=== PATIENT | female | born 1950 | race Caucasian/White ===

== ENCOUNTER → 2020-12-17 | Outpatient (CLI) | payer MEDICARE ==
--- NOTE | 2020-12-17 09:10 | Diagnostic Imaging Report ---
INDICATION: Postmenopausal screening for osteoporosis COMPARISON: None FINDINGS: AP Spine L1-L4: [BMD (g/cm2): 1.069] [T-Score: -1.1] [Z-Score: 0.3] [BMD Previous: na] [BMD % Change: na] LT Hip Neck: [BMD (g/cm2): 0.823] [T-Score: -1.5] [Z-Score: -0.1] LT Hip Total: [BMD (g/cm2):0.902] [T-Score:-0.8] [Z-Score: 0.4] [BMD Previous: na] [BMD % Change: na] RT Hip Neck: [BMD (g/cm2):0.743] [T-Score:-2.1] [Z-Score:-0.7] RT Hip Total: [BMD (g/cm2):0.876] [T-score:-1.0] [Z-Score:0.1] [BMD Previous:na] [BMD % Change:na] *Indicates significant change from prior examination based on 95% confidence level. World Health Organization criteria for BMD interpretation classify patients as Normal (T-score at or above -1.0), Osteopenic (T-score between -1.0 and -2.5) or Osteoporotic (T-score at or below -2.5). LIMITATIONS AND MODIFICATION: None. FRACTURE RISK (FRAX SCORE): The ten year probability of (%): Major Osteoporotic Fracture: [11.7] Hip Fracture: [2.2] IMPRESSION: 1. Osteopenia (Low bone mass), borderline. 2. Baseline examination. 3. See below National Osteoporosis Foundation guidelines on when to potentially initiate pharmacologic therapy. Based on the National Osteoporosis Foundation Guidelines, pharmacologic treatment should be initiated in any of the following, unless clinical conditions suggest otherwise: * Any patient with prior fragility fracture of the hip or vertebrae. A spine fracture indicates 5X risk for subsequent spine fracture and 2X risk for subsequent hip fracture. * Osteoporosis (T-score <-2.5). * Postmenopausal women and men age 50 and older with low bone mass/osteopenia (T-score between -1.0 and -2.5) by DXA and 10-year major osteoporotic fracture greater than 20% or a 10-year probability of hip fracture greater than 3%. These fracture risks are supplied above in the FRAX score, if applicable. * Clinician judgement and/or patient preferences may indicate treatment for people with 10-year fracture probabilities above or below these levels. Dictated by: Dictated on workstation # [id number]
== END ==
LOC: RAD 08:29
PROVIDERS: ATTEND Family Medicine
DX: M85.89 Other specified disorders of bone density and structure, multiple sites (principal); Z78.0 Asymptomatic menopausal state
CPT/HCPCS: 77080

== ENCOUNTER → 2021-01-22 | Outpatient (CLI) | payer MEDICARE, OTHER ==
[~2021-01-22] MED LIST: AMIT25TA9 PO; ASPI-999 PO; BARIUM for suspension 96% w/w (Vanilla Silq Medium Density) PO ONE; BARIUM for suspension 98% w/w (Vanilla Silq High Density) PO ONE; LIOT25TA11 PO; LISI20TA26 PO; PANT40TA52 PO; ROSU40TA23 PO; VENL150C PO
--- NOTE | 2021-01-22 09:29 | Diagnostic Imaging Report ---
INDICATION: Dysphagia. TECHNIQUE: The patient ingested effervescent crystals as well as thin and thick barium and imaging over the esophagus was performed. FLUOROSCOPY TIME: 1 minute 17 seconds was utilized. FINDINGS: The patient appears to have a large paraesophageal hiatal hernia with the paraesophageal component noted along the right aspect of the distal esophagus at the level of the right lung base. No esophageal mass or stricture is seen. Occasional tertiary contractions are noted. There is prompt emptying into the stomach and proximal small bowel. IMPRESSION: Large paraesophageal hiatal hernia. No other significant abnormality is detected. Dictated by: Dictated on workstation # [id number]
--- NOTE | 2021-01-22 09:35 | Diagnostic Imaging Report ---
PROCEDURE: US Gallbladder. TECHNIQUE: Multiple real-time grayscale images were obtained over the right upper quadrant in various projections. INDICATION: Left lower quadrant pain. Liver is normal in size at 13 cm. No discrete liver mass is detected. Portal vein is patent and shows normal direction of flow. Gallbladder contains multiple folds but no stones are seen. No wall thickening or biliary duct dilatation is identified. The pancreas was obscured. Aorta is mostly obscured although the distal aorta is nonaneurysmal. IVC is patent. Right kidney does contain a cyst in the lower pole measuring 2.7 cm. No calculi or hydronephrosis is seen. There is no ascites. IMPRESSION: No evidence of cholelithiasis or acute cholecystitis. Right renal cyst. Dictated by: Dictated on workstation # [id number]
== END ==
LOC: RAD 08:00
PROVIDERS: ATTEND Surgery
DX: K44.9 Diaphragmatic hernia without obstruction or gangrene (principal)
CPT/HCPCS: 74220; 76705

== ENCOUNTER 2021-01-24 05:39 | Outpatient (RCR) | payer MEDICARE ==
[~2021-01-24] VITALS: Ht 149.9 cm; Wt 73.9 kg
[~2021-01-24 05:39] MED LIST changes: -BARIUM for suspension 96% w/w (Vanilla Silq Medium Density) PO ONE; -BARIUM for suspension 98% w/w (Vanilla Silq High Density) PO ONE
== END 2021-01-24 09:36 | disposition home or self-care (01) ==
LOC: PREOP 05:39
PROVIDERS: ATTEND Surgery
DX: Z01.812 Encounter for preprocedural laboratory examination (principal); R13.10 Dysphagia, unspecified; Z20.822 Contact with and (suspected) exposure to COVID-19
CPT/HCPCS: 87635

== ENCOUNTER → 2021-01-27 | Outpatient (CLI) | payer MEDICARE ==
[~2021-01-27] MED LIST changes: +CATHETER FLUSH 10 ML SYR IV PRN
--- NOTE | 2021-01-27 13:33 | Diagnostic Imaging Report ---
INDICATION: Left lower quadrant pain. Patient was administered 5.5 mCi technetium 99m Choletec intravenously and imaging over the abdomen was performed. After 60 minutes patient ingested one can of Ensure and gallbladder ejection fraction was calculated. There is homogeneous uptake of activity by the liver with prompt excretion of activity into the gallbladder and common duct. Normal passage of activity into the small bowel is noted. Gallbladder ejection fraction is normal at 55%. IMPRESSION: Normal HIDA scan and gallbladder ejection fraction. Dictated by: Dictated on workstation # [id number]
== END ==
LOC: CARD 09:10
PROVIDERS: ATTEND Surgery
DX: R10.32 Left lower quadrant pain (principal); R13.10 Dysphagia, unspecified
CPT/HCPCS: 78227; A9537

== ENCOUNTER 2021-01-28 12:05 | Day surgery (SDC) | payer MEDICARE, OTHER ==
[~2021-01-28] VITALS: Ht 149.9 cm; Wt 73.9 kg
[~2021-01-28 12:05] MED LIST changes: -CATHETER FLUSH 10 ML SYR IV PRN; +LACTATED RINGERS 1,000 ML IV ONE
[2021-01-28] MEDS ORDERED: LACTATED RINGERS 1,000 ML IV STA (12:13)
[2021-01-28] MEDS ORDERED: HURRICAINE EXT TUBE (BENZOCAINE) XX PRN (12:15)
[2021-01-28 12:27] VITALS: BP 144/99
[2021-01-28] MEDS ORDERED: proPOfol 200 MG/20 ML (DIPRIVAN) VIAL IV ONE (12:59)
[2021-01-28] MEDS ORDERED: MIDAZOLAM 2 MG/2 ML (VERSED) VIAL ONE (12:59)
--- NOTE | 2021-01-28 13:19 | Progress Note-Pre Operative ---
Pre-Operative Progress Note H&P Reviewed The H&P was reviewed, patient examined and no changes noted. Date Seen by Provider: Jan 28, 2021 Time Seen by Provider: 13:16 Date H&P Reviewed: Jan 28, 2021 Time H&P Reviewed: 13:16 Pre-Operative Diagnosis: dysphagia ALBERTO MORRISON DO Jan 28, 2021 13:19
[2021-01-28 13:44] VITALS: BP 126/60
--- NOTE | 2021-01-28 13:46 | Progress Note-Post Operative ---
Post-Operative Progess Note Surgeon (s)/Acquisition Marketing Coordinator (s) Surgeon ALBERTO MORRISON DO Acquisition Marketing Coordinator: na Pre-Operative Diagnosis dysphagia Post-Operative Diagnosis duodenitis, gastritis, hiatal hernia Procedure & Operative Findings Date of Procedure 01/28/21 Procedure Performed/Findings egd c biopsies Anesthesia Type per senior account director Estimated Blood Loss Estimated blood loss (mL): none Specimens/Packing Specimens Removed antum, body, ge ALBERTO MORRISON DO Jan 28, 2021 13:46
--- NOTE | 2021-01-28 13:47 | Discharge Inst-Simple/Standard ---
Discharge Inst-Standard Patient Instructions/Follow Up Plan of Care/Instructions/FU: 2 weeks Shania Activity as Tolerated: Yes Discharge Diet: Regular Diet ALBERTO MORRISON DO Jan 28, 2021 13:47
[2021-01-28 13:49] VITALS: BP 137/76
[2021-01-28 13:55] VITALS: BP 141/84
--- NOTE | 2021-01-28 14:13 | Anesthesia-General Post-Op ---
MAC Patient Condition Mental Status/LOC: Same as Preop Cardiovascular: Satisfactory Nausea/Vomiting: Absent Respiratory: Satisfactory Pain: Controlled Complications: Absent Post Op Complications Complications None Follow Up Care/Instructions Patient Instructions None needed. Anesthesiology Discharge Order Discharge Order Patient is doing well, no complaints, stable vital signs, no apparent adverse anesthesia problems. No complications reported per nursing. DENY OJEDA CRNA Jan 28, 2021 14:13
[2021-01-28 14:25] VITALS: BP 125/88
[2021-01-28 16:05] VITALS: BP 125/88
--- NOTE | 2021-01-29 00:21 | OPERATIVE REPORT ---
DATE OF SERVICE: 01/28/2021 PREOPERATIVE DIAGNOSIS: Dysphagia. POSTOPERATIVE DIAGNOSES: Duodenitis, gastritis, hiatal hernia. PROCEDURE: EGD with biopsy. SURGEON: Alberto Jauregui DO ANESTHESIA: Per WOOD CARVER. ESTIMATED BLOOD LOSS: None. COMPLICATIONS: None. SPECIMENS: Antrum, body, GE junction. INDICATIONS: The patient is a 70-year-old female with dysphagia. She understands risks and benefits of procedure and wished to proceed with procedure. Consent was signed in the chart. DESCRIPTION OF PROCEDURE: The patient was taken to the endoscopy suite, placed in left lateral recumbent position. Timeout was performed. Scope was inserted in mouth, down the esophagus, stomach and into the duodenum without difficulty. No polyps, masses or ulcerations in the duodenum. Some areas of erythema consistent with some duodenitis. Scope was slowly retracted back into the stomach where it was further insufflated. No polyps, masses or ulcerations or erythematous changes throughout the antrum and body. Biopsies of the antrum and body were obtained. Scope was retroflexed noting a hiatal hernia, no other pathology. Scope was returned to its normal position, slowly withdrawn to distal esophagus. Biopsy of GE junction was obtained. Scope was then slowly retracted back to completely remove noting no other pathology. RECOMMENDATIONS: The patient will follow up in office in two weeks to discuss pathology results. We will continue on current medications. We will likely order an upper GI for further evaluation. Further recommendations pending results. Job ID: [id number] DocumentID: [id number] Dictated Date: 01/28/2021 13:49:49 Net Trainer Date: 01/29/2021 00:20:42 Dictated By: ALBERTO JAUREGUI DO
== END 2021-01-28 16:05 | disposition home or self-care (01) ==
LOC: ENDO 12:05
PROVIDERS: ATTEND Surgery
DX: K29.80 Duodenitis without bleeding (principal); K29.70 Gastritis, unspecified, without bleeding; K31.89 Other diseases of stomach and duodenum; K21.9 Gastro-esophageal reflux disease without esophagitis; K44.9 Diaphragmatic hernia without obstruction or gangrene; I10 Essential (primary) hypertension; R13.10 Dysphagia, unspecified; E78.5 Hyperlipidemia, unspecified; F32.9 Major depressive disorder, single episode, unspecified; Z79.82 Long term (current) use of aspirin; Z79.899 Other long term (current) drug therapy; Z90.710 Acquired absence of both cervix and uterus; Z20.822 Contact with and (suspected) exposure to COVID-19; Z88.8 Allergy status to other drugs, medicaments and biological substances; Z96.653 Presence of artificial knee joint, bilateral; Z85.3 Personal history of malignant neoplasm of breast; Z80.1 Family history of malignant neoplasm of trachea, bronchus and lung

== ENCOUNTER → 2021-02-19 | Outpatient (CLI) | payer MEDICARE, OTHER ==
[~2021-02-19] MED LIST changes: -LACTATED RINGERS 1,000 ML IV ONE
--- NOTE | 2021-02-19 13:51 | Diagnostic Imaging Report ---
PROCEDURE: US Thyroid. TECHNIQUE: Multiple real-time grayscale images were obtained of the thyroid in various projections. INDICATION: Dysphasia Right thyroid lobe 3.8 x 0.9 x 1.5 cm. It contains a upper pole well-circumscribed hypoechoic nodule measuring 6 mm long axis as well as a hypoechoic well-defined lower pole nodule measuring 9 mm long axis. The left thyroid lobe 3.2 x 1.3 x 1.2 cm contains a hypoechoic well-defined upper pole nodule of 7 mm long axis. IMPRESSION: Subcentimeter bilateral thyroid nodules, solid and hypoechoic. While these are TI-RADS 4 level lesions given their subcentimeter size may require no further recommended workup. Dictated by: Dictated on workstation # [id number]
== END ==
LOC: RAD 11:20
PROVIDERS: ATTEND Surgery
DX: E04.2 Nontoxic multinodular goiter (principal)
CPT/HCPCS: 76536

== ENCOUNTER → 2022-09-25 | Outpatient (CLI) | payer MEDICARE, OTHER ==
[~2022-09-25] MED LIST changes: -VENL150C PO; +VENL150C3 PO
== END ==
LOC: CARD 12:00
PROVIDERS: ATTEND Internal Medicine Cardiovascular Disease
DX: I35.1 Nonrheumatic aortic (valve) insufficiency (principal); I10 Essential (primary) hypertension; I25.10 Atherosclerotic heart disease of native coronary artery without angina pectoris
CPT/HCPCS: 93306

== ENCOUNTER → 2022-10-06 | Outpatient (CLI) | payer MEDICARE, OTHER ==
[2022-10-06 09:35] LABS: HEMATOCRIT 43 % (35-52); HEMOGLOBIN 14.2 g/dL (11.5-16.0); MEAN CORPUSCULAR HEMOGLOBIN 30 pg (25-34); MEAN CORPUSCULAR HGB CONC 33 g/dL (32-36); MEAN CORPUSCULAR VOLUME 91 fL (80-99); MEAN PLATELET VOLUME 10.1 fL (9.0-12.2); PLATELET COUNT 237 10^3/uL (130-400); WHITE BLOOD COUNT 4.6 10^3/uL (4.3-11.0)
[2022-10-06 09:52] LABS: ALBUMIN 4.4 GM/DL (3.2-4.5); BILIRUBIN,TOTAL 1.5 MG/DL (0.1-1.0); CALCIUM 9.6 MG/DL (8.5-10.1); CREATININE SERUM 0.8 MG/DL (0.60-1.30); POTASSIUM 4.3 MMOL/L (3.6-5.0); TOTAL PROTEIN 7.3 GM/DL (6.4-8.2)
== END ==
LOC: LAB 09:16
PROVIDERS: ATTEND Internal Medicine Cardiovascular Disease
DX: I10 Essential (primary) hypertension (principal); I25.10 Atherosclerotic heart disease of native coronary artery without angina pectoris; I65.23 Occlusion and stenosis of bilateral carotid arteries; E03.9 Hypothyroidism, unspecified; E78.2 Mixed hyperlipidemia
CPT/HCPCS: 36415; 80053; 80061; 83036; 84443; 85027

== ENCOUNTER → 2022-10-07 | Outpatient (CLI) | payer MEDICARE, OTHER ==
[~2022-10-07] MED LIST changes: +CATHETER FLUSH 10 ML SYR IVP PRN
[2022-10-07 13:17] VITALS: BP 143/82
--- NOTE | 2022-10-07 14:51 | Cardiology Stress Test Report ---
Stress Test Report Date of Procedure/Referring: Date of Procedure: Oct 07, 2022 PCP Cutr Greene MD Admitting Physician Admitting Physician: Attending Physician: Ryan David MD Baseline Heart Rate: 111 Baseline Blood Pressure: Blood Pressure Systolic: 143 Blood Pressure Diastolic: 82 Vital Signs Date Time Temp Pulse Resp B/P (MAP) Pulse Ox O2 Delivery O2 Flow Rate FiO2 10/07/22 13:17 111 143/82 (102) Baseline Vital Signs Vital Signs Date Time Temp Pulse Resp B/P (MAP) Pulse Ox O2 Delivery O2 Flow Rate FiO2 10/07/22 13:17 111 143/82 (102) Baseline EKG: Baseline EKG: NSR Summary: After explaining the procedure and details to the patient, she signed the consent and was brought to the stress nuclear laboratory. Patient exercised on standard Dony protocol, EKG, heart rate and blood pressure were monitored continuously, resting and stress doses of radio tracer were injected, imaging was acquired and reviewed in the short axis, horizontal long axis and vertical long axis views Patient was able to exercise for a total of 2 minutes on Dony protocol, METs 3.4 Maximum heart rate 156 Maximum blood pressure 202/96 Stress EKG, Minimal nondiagnostic changes Recovery EKG, Return to baseline SSS: 1 SDS: 1 EF: 79 Conclusion: 1. Poor exercise tolerance for a total of 2 minutes on standard Dony protocol, 3.4 METS achieving 100% of maximum expected heart rate 2. Baseline sinus tachycardia with appropriate heart rate response to exercise with hypertensive response to exercise return to baseline during recovery 3. Minimal nondiagnostic EKG changes with exercise return to baseline during recovery 4. No significant ischemia or infarction noted on SPECT images 5. Normal left ventricular size, ejection fraction 79% RYAN DAVID MD Oct 07, 2022 14:51
== END ==
LOC: CARD 11:30
PROVIDERS: ATTEND Internal Medicine Cardiovascular Disease
DX: I10 Essential (primary) hypertension (principal); I25.10 Atherosclerotic heart disease of native coronary artery without angina pectoris
CPT/HCPCS: 78452; 93017; A9502

== ENCOUNTER → 2022-11-06 | Outpatient (CLI) | payer MEDICARE, OTHER ==
[~2022-11-06] MED LIST changes: -CATHETER FLUSH 10 ML SYR IVP PRN
--- NOTE | 2022-11-06 15:00 | Diagnostic Imaging Report ---
PROCEDURE: US Abdomen, limited. TECHNIQUE: Multiple real-time grayscale images were obtained over the abdomen in various projections. INDICATION: Epigastric pain. FINDINGS: Liver parenchyma is homogeneous with normal echotexture. Portal vein is patent with hepatopetal flow. The gallbladder is clear with no stones or wall thickening. The common duct is not dilated. Pancreas is obscured by bowel gas. IVC is patent. Aorta is obscured. The right kidney measures 9.5 cm in length. There is a 3 cm cyst on the inferior pole of the right kidney. There is no ascites. IMPRESSION: Unremarkable right upper quadrant ultrasound. Dictated by: Dictated on workstation # [id number]
== END ==
LOC: RAD 09:46
PROVIDERS: ATTEND Nurse Practitioner
DX: R10.13 Epigastric pain (principal)
CPT/HCPCS: 76705

== ENCOUNTER → 2022-11-13 | Outpatient (CLI) | payer MEDICARE, OTHER ==
[~2022-11-13] MED LIST changes: +CATHETER FLUSH 10 ML SYR IVP PRN
--- NOTE | 2022-11-13 11:20 | Diagnostic Imaging Report ---
INDICATION: Epigastric pain. TECHNIQUE: The patient was administered 5.5 mCi of technetium 99m Choletec intravenously and imaging over the abdomen was performed. At 45 minutes, the patient ingested 8 ounces of Ensure and a gallbladder ejection fraction was calculated. FINDINGS: There is homogeneous uptake of activity by the liver with prompt excretion of activity into the common duct and gallbladder. There is normal passage of activity into the small bowel. The gallbladder ejection fraction measures 92%. IMPRESSION: Normal HIDA scan and gallbladder ejection fraction. Dictated by: Dictated on workstation # [id number]
== END ==
LOC: CARD 09:13
PROVIDERS: ATTEND Nurse Practitioner
DX: R10.13 Epigastric pain (principal)
CPT/HCPCS: 78227; A9537

== ENCOUNTER 2022-11-26 05:39 | Outpatient (CLI) | payer MEDICARE, OTHER ==
[~2022-11-26] VITALS: Ht 151.3 cm; Wt 68.0 kg
[~2022-11-26 05:39] MED LIST changes: -CATHETER FLUSH 10 ML SYR IVP PRN
[2022-11-26] MEDS ORDERED: FLUO40CA12 PO (11:07)
[2022-11-26] MEDS ORDERED: MULT-1136 PO (11:09)
[2022-11-26] MEDS ORDERED: MELA1TAB20 PO (11:09)
== END 2022-11-26 11:59 | disposition home or self-care (01) ==
LOC: PREOP 05:39
PROVIDERS: ATTEND Surgery
DX: Z01.818 Encounter for other preprocedural examination (principal)

== ENCOUNTER 2022-12-02 09:40 | Day surgery (SDC) | payer MEDICARE, OTHER ==
[2022-12-02] VITALS (11 sets, daily range): BP systolic 129–155; BP diastolic 70–87
[~2022-12-02] VITALS: Ht 151.3 cm; Wt 68.0 kg
[~2022-12-02 09:40] MED LIST changes: +FLUO40CA12 PO; +MELA1TAB20 PO; +MULT-1136 PO
[2022-12-02] MEDS ORDERED: BUP/EPI 0.5% 1:200,000 (SENSORCAINE) 30 ML VIAL ONE (09:43)
[2022-12-02] MEDS ORDERED: ceFAZolin INJECTION 2,000 MG in NS (IVPB) 50 ML IV ONE (10:00)
[2022-12-02] MEDS ORDERED: LACTATED RINGERS 1,000 ML IV PRN (10:00)
--- NOTE | 2022-12-02 10:40 | Progress Note-Pre Operative ---
Pre-Operative Progress Note Date of Available H&P: Nov 23, 2022 Date H&P Reviewed: Dec 02, 2022 Time H&P Reviewed: 10:24 History & Physical: H&P Reviewed, Patient Examed, No changes noted Pre-Operative Diagnosis: biliary dyskinesia ALBERTO MORRISON DO Dec 02, 2022 10:40
--- NOTE | 2022-12-02 11:22 | Progress Note-Post Operative ---
Post-Operative Progess Note Surgeon (s)/Flexographic Press Operator (s) Surgeon ALBERTO MORRISON DO Flexographic Press Operator: Dr. Rayo to assist in retraction dissection and closure. Pre-Operative Diagnosis biliary dyskinesia Post-Operative Diagnosis same Procedure & Operative Findings Date of Procedure 12/02/22 Procedure Performed/Findings PROCEDURE: Laparoscopic cholecystectomy with intraoperative cholangiogram. COMPLICATIONS: None. PROCEDURE: The patient was taken to the operating suite and was prepped and draped in sterile fashion. A surgical pause was performed. Just superior to the umbilicus, a 12 mm incision was made. Dissection was taken down to the fascia, which was then scored and grasped with a Cheri and the abdomen was then entered. A 0 Vicryl suture was placed in a [id number] fashion and a Ngo trocar was placed and secured. Pneumoperitoneum was achieved. A 5mm trochar place in the subxyphoid and 2 in the right upper quadrant. The gallbladder was then grasped and elevated. The cystic duct, and cystic artery were then dissected out. Clip was placed on the distal portion of the cystic duct which was then partially transected. An arrow catheter was inserted into the duct. The cholangiogram was then performed. No filing defects and contrast made its way into the duodenum. Catheter removed. Clips were placed on proximal portion of the cystic duct and then the duct was then transected. Clips were placed along the proximal and distal portion of the cystic artery which was then transected. Hook cautery was used to dissect the gallbladder from the gallbladder fossa achieving hemostasis. The gallbladder was placed in an Endobag and removed through the 12 mm trocar site. The abdomen was then reinspected. Copious amounts of irrigation were used to irrigate the abdomen and there were no signs of active bleeding. Hemostasis had been achieved. The 12 mm fascial defect was then closed with 0 Vicryl suture that had been placed in a kkozmz-[id number]-bympo fashion. The abdomen was then desufflated, the trocars were removed. The abdomen was then washed and dried. The skin was then closed using 4-0 Monocryl in a subcuticular fashion. The abdomen was washed and dried and Skin Affix was place over incisions. Patient tolerated the procedure well without any complications and was taken to the recovery room in stable condition. Anesthesia Type general Estimated Blood Loss Estimated blood loss (mL): minimal Specimens/Packing Specimens Removed gallbladder ALBERTO MORRISON DO Dec 02, 2022 11:22
[2022-12-02] MEDS ORDERED: DOCU-143 PO (11:23)
[2022-12-02] MEDS ORDERED: ACHD5005 PO (11:23)
--- NOTE | 2022-12-02 11:24 | Discharge Inst-Simple/Standard ---
Discharge Inst-Standard Discharge Medications New, Converted or Re-Newed RX: Transmitted to Pharmacy Patient Instructions/Follow Up Plan of Care/Instructions/FU: 2 weeks Shania Activity as Tolerated: No Discharge Diet: Regular Diet Other Inst to Patient Follow up Appt: Make appointment for 2 weeks. Instructions: No lifting greater than 10 pounds. No strenuous activity. May shower in 24 hours, no tub bath or soaking. Use incentive spirometer at home as directed. No Smoking Skin/Wound Care: You have special glue over incision, it will fall off on it's own. Symptoms to Report: Appetite Changes, Extremity Discoloration, Numbness/Tingling, Swelling Increased, Bleeding Excessive, Eyesight Changes, Pain Increased, Urine Color Change, Constipation(Persistent), Fever over 101 degree F, Pain/Pressure in chest, Urinating Difficulty, Cough Up/Vomit Blood, Heart Beat Irreg/Pounding, Pain/Pressure in jaw, Vaginal Bleeding Increase, Cramps in feet or legs, Lightheadedness, Pain/Pressure in shoulder, Diarrhea(Persistent), Memory Changes Suddenly, Questions/Concerns, Weight gain consecutive days, Dizziness/Fainting, Nausea/Vomiting, Shortness of Breath, Weight gain over 2 pounds. If eyes or skin turn yellow notify physician. If questions or concerns contact your physician Or seek help at emergency department. ALBERTO MORRISON DO Dec 02, 2022 11:24
[2022-12-02] MEDS ORDERED: ONDANSETRON 4 MG/2 ML (SDV) Z0FRAN IVP PRN (11:45)
[2022-12-02] MEDS ORDERED: HYDROmorphone 2 MG/ML VIAL (DILAUDID) IV ONE (11:45)
--- NOTE | 2022-12-02 14:40 | Anesthesia-General Post-Op ---
General Patient Condition Mental Status/LOC: Same as Preop Cardiovascular: Satisfactory Nausea/Vomiting: Absent Respiratory: Satisfactory Pain: Controlled Complications: Absent Post Op Complications Complications None Follow Up Care/Instructions Patient Instructions None needed. Anesthesia/Patient Condition Patient Condition Patient is doing well, no complaints, stable vital signs, no apparent adverse anesthesia problems. No complications reported per nursing. D/C home per [facility] [place] [facility] Criteria: Yes MARICRUZ AMBROCIO CRNA Dec 02, 2022 14:40
== END 2022-12-02 13:55 | disposition home or self-care (01) ==
LOC: SDC 09:40
PROVIDERS: ATTEND Surgery
DX: K82.8 Other specified diseases of gallbladder (principal); K81.1 Chronic cholecystitis; Z85.3 Personal history of malignant neoplasm of breast; Z28.310 Unvaccinated for COVID-19
CPT/HCPCS: 76000; 87081

== ENCOUNTER 2023-05-05 05:37 | Outpatient (CLI) | payer MEDICARE, OTHER ==
[~2023-05-05] VITALS: Ht 151.1 cm; Wt 68.0 kg
[~2023-05-05 05:37] MED LIST changes: +ACHD5005 PO; +DOCU-143 PO; -MELA1TAB20 PO; +MELA1TAB72 PO
== END 2023-05-05 11:15 ==
LOC: PREOP 05:37
PROVIDERS: ATTEND Surgery
DX: Z01.818 Encounter for other preprocedural examination (principal)

== ENCOUNTER 2023-05-18 09:25 | Day surgery (SDC) | payer MEDICARE, OTHER ==
[~2023-05-18] VITALS: Ht 151.1 cm; Wt 68.0 kg
[2023-05-18] MEDS ORDERED: LACTATED RINGERS 1,000 ML IV STA (09:34)
[2023-05-18] MEDS ORDERED: LACTATED RINGERS 1,000 ML IV ONE (09:38)
[2023-05-18] MEDS ORDERED: NS (IVPB) 50 ML 50 ML ONE (09:43)
[2023-05-18] MEDS ORDERED: ceFAZolin INJECTION 1,000 MG ONE (09:43)
[2023-05-18 09:44] VITALS: BP 106/85
[2023-05-18] MEDS ORDERED: ceFAZolin INJECTION 1,000 MG in NS (IVPB) 50 ML 50 ML IV ONE (10:00)
[2023-05-18] MEDS ORDERED: PROPOFOL INJECTION 50 ML IV ONE (10:18)
--- NOTE | 2023-05-18 10:53 | Progress Note-Post Operative ---
Post-Operative Progess Note Surgeon (s)/Bottle Machine Operator (s) Surgeon ALBERTO MORRISON DO Bottle Machine Operator: None Pre-Operative Diagnosis Positive Cologuard Post-Operative Diagnosis Normal colon Procedure & Operative Findings Date of Procedure 05/18/23 Procedure Performed/Findings Colonscopy Anesthesia Type Per TOOL REPAIRER BENCH Estimated Blood Loss Estimated blood loss (mL): None Specimens/Packing Specimens Removed None ALBERTO MORRISON DO May 18, 2023 10:53
--- NOTE | 2023-05-18 10:55 | Discharge Inst-Simple/Standard ---
Discharge Inst-Standard Patient Instructions/Follow Up Plan of Care/Instructions/FU: Shania on as needed basis Repeat Colonoscopy not needed due to age, however if has change in symptoms should be re-evaluated at that time Activity as Tolerated: Yes Discharge Diet: Regular Diet ALBERTO MORRISON DO May 18, 2023 10:55
[2023-05-18 10:56] VITALS: BP 104/67
[2023-05-18 11:01] VITALS: BP 86/54
[2023-05-18 11:06] VITALS: BP 89/58
[2023-05-18 11:10] VITALS: BP 85/59
[2023-05-18 11:40] VITALS: BP 100/65
--- NOTE | 2023-05-18 17:08 | OPERATIVE REPORT ---
DATE OF SERVICE: 05/18/2023 PREOPERATIVE DIAGNOSIS: Positive Cologuard. POSTOPERATIVE DIAGNOSIS: Normal colon. PROCEDURE: Colonoscopy. SURGEON: Alberto Jauregui DO ANESTHESIA: Per LINE LOCATOR. ESTIMATED BLOOD LOSS: None. COMPLICATIONS: None. INDICATIONS: The patient is a 72-year-old female who had positive Cologuard. She understands risks and benefits of procedure and wished to proceed. Consent was signed in chart. DESCRIPTION OF PROCEDURE: The patient was taken to endoscopy suite, placed in left lateral recumbent position. Timeout was performed. Digital rectal exam was performed. No palpable polyps, masses or ulcerations. Scope was inserted in the rectum and advanced all the way to the cecum with minimal difficulty. Prep was adequate with irrigation and suction. Scope was slowly retracted back. No polyps, masses or ulcerations in the cecum, ascending, transverse, descending and sigmoid colon. Once in the rectum, scope was retroflexed, noting no other pathology. Scope was returned to its normal position, slowly withdrawn until completely removed. The patient tolerated the procedure well without any complications, taken to recovery room in stable condition. RECOMMENDATIONS: The patient will repeat colonoscopy on an as needed basis. If she has any change in symptoms, she should be reevaluated at that time. Job ID: [id number] DocumentID: [id number] Dictated Date: 05/18/2023 10:52:16 Auto Body Service Mechanic Date: 05/18/2023 17:06:00 Dictated By: ALBERTO JAUREGUI DO
== END 2023-05-18 11:46 | disposition home or self-care (01) ==
LOC: ENDO 09:25
PROVIDERS: ATTEND Surgery
DX: Z12.11 Encounter for screening for malignant neoplasm of colon (principal); Z86.010 Personal history of colon polyps; Z79.02 Long term (current) use of antithrombotics/antiplatelets